=== PATIENT | female | born 1950 | race Caucasian/White ===

== ENCOUNTER 2016-07-08 09:51 | Day surgery (SDC) | payer MEDICARE ==
[2016-07-08] VITALS (8 sets, daily range): BP systolic 103–156; BP diastolic 60–80; PULSE 64–79; RESP 14–17; O2SAT 91–98
[~2016-07-08] VITALS: Ht 162.6 cm; Wt 81.6 kg
[~2016-07-08 09:51] MED LIST: ATEN25TA PO; FLUT9.9S NS; Lactated Ringer's 1,000 ML IV SCH; PRAV20TA2 PO
[2016-07-08] MEDS ORDERED: Ondansetron 2 mg/mL 2 mL Inj ONE (09:52)
[2016-07-08] MEDS ORDERED: Dexamethasone 4 mg/mL Inj ONE (09:52)
[2016-07-08] MEDS ORDERED: Lidocaine PF 1% 30 mL Inj ONE (09:52)
[2016-07-08] MEDS ORDERED: Propofol 10,000 mCg/mL 20 mL Inj ONE (09:52)
[2016-07-08] MEDS ORDERED: fentaNYL-PF 50 mCg/mL 2 mL Inj ONE (09:52)
[2016-07-08] MEDS ORDERED: MetoCLOpramide 5 mg/mL 2 mL Inj ONE (09:52)
[2016-07-08] MEDS ORDERED: Lactated Ringer's 1,000 ML IV ONE (10:00)
[2016-07-08] MEDS ORDERED: Lactated Ringer's 1,000 ML IV SCH (10:51)
[2016-07-08] MEDS ORDERED: Lactated Ringer's 500 ML IV PRN (10:51)
--- NOTE | 2016-07-08 10:51 | PCM.HPANE ---
Patient Data Date of Service: Jul 08, 2016 Surgeon Admitting Provider: Attending Provider:Flynn Espinoza MD Primary Care Physician:Iván Hayward MD Other Provider:Lidia Araujo Anesthesia Reason for Visit Right Breast Nipple Discharge Ht/WT & BMI Height (Feet): 5 Height (Inches): 4.00 Weight (Kilograms): 81.640 Body Mass Index 30.00 Allergies Coded Allergies: No Known Allergies (Verified Allergy, 05/11/13) Past Anesthesia History Anesthesia History: Denies:: Abnormal Airway, Anesthesia Reactions, Difficult Intubation, Fam Anesthesia Reaction, Fam Malignant Hypertherm, Malignant Hyperthermia Diabetes History Hx Diabetes?: No MRSA MRSA: No Medications Blood Thinner: Aspirin Hypertension Medication: Yes Home Meds Incl Beta Alla: Yes Date Beta Alla Taken: Jul 08, 2016 Time Beta Alla Taken: 0700 Reported Medications Pravastatin 20 Mg [id number] Mg PO DAILY Ref 0 07/05/16 Fluticasone Propionate (Flonase Allergy Relief)50 Mcg/Actuation Jenkinjones.susp9.9 Ml NS DIRECTED PRN For Congestion 07/05/16 Atenolol 25 Mg [id number] Mg PO DAILY #30 TABLET Ref 0 07/05/16 Discontinued Reported Medications [Pravastatin] No Conflict Check20 Mg PO DAILY 05/09/13 [Atenolol] No Conflict Check25 Mg PO DAILY 05/09/13 History History of ENT Problems?: No HEENT History: Denies:: Abnormal Airway Difficult Intubation Cardiovascular History: Positive for:: Hypertension Hx of Respiratory Problem?: Yes Respiratory History: Positive for:: Asthma (MILD) Hx Neurologic Problems?: No Neurological History: Positive for:: Headaches Denies:: CVA Hx of GI Problems?: No Hx of Problems?: No Skin History: Denies:: History Skin Disorders? Pressure Ulcers Hx Musculoskeletal Problems?: No Musculoskeletal History: Positive for:: Musculoskeletal Trauma (FOOT) Osteoarthritis Hx Surgeries?: Yes (T&A, BTL, R BREAST) Hx Any Other Health Problems?: No Other History: Positive for:: Cancer (R BREAST) Hx Diabetes: No Hx Alcohol Use: Yes (WINE / DAY) Stop/Bang S-Snoring: Do You Snore Loudly: No T-Tired: feel tired, fatigued: No O-Obsered: Observed not breath: No P-Blood Pressure: treated: Yes B- Body Mass Index > 35 kg/m2: No A- Age over 50: Yes N- Neck Large Circumference: No G- Gender Male: No NIRANJAN Total Score: 2 NIRANJAN Risk Assessment: Low Risk, <3 Yes Risk Assessment Category Category 1A: Patient has history of documented sleep apnea, and HAS NOT received any narcotic, sedative or anesthesia administration during this stay. Category 1B: Patient has history of documented sleep apnea, and HAS received any narcotic , sedative or anesthesia administration during this stay Category 2: Patient has SUSPECTED Obstructive Sleep Apnea, and HAS received any narcotic , sedative or anesthesia administration during this stay. Category 3: Patient has SUSPECTED Obstructive Sleep Apnea and HAS NOT received narcotic, sedative or anesthesia administration during this stay. Category 4: Outpatient in Procedural Areas with known sleep apnea or who screen positive for High Risk via the STOP/BANG questionnaire. Exam Exam Vital Signs Vital Signs Date Time Temp Pulse Resp B/P Pulse Ox O2 Delivery O2 Flow Rate FiO2 07/08/16 10:20 36.6 76 14 156/80 98 Room Air General Appearance: Alert, Oriented X3, Cooperative HEENT/AIRWAY: MP 2, Neck Movement (Full ), Mouth Opening (Wide) Lungs: Clear to Auscultation, Normal Air Movement Heart: Regular Rate/Rhythm, Normal S1, Normal S2 Meds/Labs/Diagnostics Admission Meds Current Medications Lactated Ringer's (Lr) 1,000 ml @ ud STK-MED ONCE IV Last administered on 07/08t 10:00; Start 07/08/16 at 10:00; Stop 07/08/16 at 10:01; Status DC Plan Impression Patient chart reviewed, patient interviewed and anesthestic plan with risks, benefits, and alternatives discussed, and informed consent obtained. NPO Status: Confirmed before mn ASA Physical Status: ASA2 Mod Systemic Disease Anesthetic Plan: GA Bene/Risks/Altern/Consents: Yes HP Complete Prior to Induction: Yes Servando Burton MD Jul 08, 2016 10:51
[2016-07-08] MEDS ORDERED: Dexamethasone 4 mg/mL Inj IVPUSH PRN (10:55)
[2016-07-08] MEDS ORDERED: fentaNYL-PF 50 mCg/mL 2 mL Inj IVPUSH PRN (10:55)
[2016-07-08] MEDS ORDERED: Atropine 0.4 mg/mL Inj IVPUSH PRN (10:55)
[2016-07-08] MEDS ORDERED: Albuterol 2.5 mg/3 mL Inhalation Solution NEB PRN (10:55)
[2016-07-08] MEDS ORDERED: Labetalol 5 mg/mL 4 mL Inj IV PRN (10:55)
[2016-07-08] MEDS ORDERED: Ondansetron 2 mg/mL 2 mL Inj IVPUSH PRN (10:55)
[2016-07-08] MEDS ORDERED: Phenylephrine 10,000 mCg/mL Inj IVPUSH PRN (10:55)
[2016-07-08] MEDS ORDERED: HYDROmorphone 1 mg/mL Inj IVPUSH PRN (10:55)
[2016-07-08] MEDS ORDERED: EPHEDrine Sulfate 50 mg/mL Inj IVPUSH PRN (10:55)
[2016-07-08] MEDS ORDERED: hydrALAZINE 20 mg/mL Inj IVPUSH PRN (10:55)
[2016-07-08] MEDS ORDERED: MetoCLOpramide 5 mg/mL 2 mL Inj IVPUSH PRN (10:55)
[2016-07-08] MEDS ORDERED: Bupivacaine-MPF 0.5% 30 mL Inj INFILTRATE ONE (11:35)
--- NOTE | 2016-07-08 12:06 | PCM.ANEP1 ---
Post Anesthesia Phase 1 PACU Phase 1 Assessment Date of Service: Jul 08, 2016 Vital Signs PACU HR 64, O2 97% 10 L, RR 10, T 36.2, BP 103/67 Vital Signs Date Time Temp Pulse Resp B/P Pulse Ox O2 Delivery O2 Flow Rate FiO2 07/08/16 10:20 36.6 76 14 156/80 98 Room Air Anesthetic Administered: GA Level of Alertness: Sleepy, easy to arouse BERMAN's with Equal Strength: Yes Pain: No Nausea or Vomiting: No Oxygen Delivery: Simple Mask Lungs: Normal Air Movement Servando Burton MD Jul 08, 2016 12:06
[2016-07-08] MEDS ORDERED: HYDROcodone-APAP 5-325 mg Tablet PO PRN (12:10)
--- NOTE | 2016-07-08 12:10 | PCM.ANEP2 ---
Post Anesthesia Evaluation ASA/CMS Post Anesthesia Date of Service: Jul 08, 2016 VS in Patient's Normal Range?: Yes Resp Stable; Airway Patent?: Yes CV Function & Hydration Stable: Yes Mental Status Recovered?: Yes Pain control Satisfactory?: Yes N/V Control Satisfactory?: Yes Servando Burton MD Jul 08, 2016 12:10
--- NOTE | 2016-07-08 13:37 | OP ---
[address] [address] OPERATIVE REPORT PATIENT: ARTI HORAN : 1950 MR#: [id number] ADMIT: 07/08/2016 JOB ID: [id number] DATE OF SURGERY: 07/08/2016 ANESTHESIA: General. PREOPERATIVE DIAGNOSIS(ES): Right pathologic nipple discharge. POSTOPERATIVE DIAGNOSIS(ES): Right pathologic nipple discharge. OPERATIVE PROCEDURE: Right breast duct excisional biopsy. SURGEON: Flynn Espinoza MD. TRAM DRIVER: Aissatou Eastman PA-C (the senior office support assistant sosa was required for the safe and timely completion of the case) and ANGEL Gregg. COMPLICATIONS: None. ESTIMATED BLOOD LOSS: Minimal. CONDITION: Satisfactory. SPECIMEN: Right breast duct excision. FINDINGS: I was able to identify a single duct that was expressing clear fluid. Ductal probe inserted and the duct excised through a circumareolar incision. INDICATIONS/SIGNIFICANT HISTORY: The patient is a 66-year-old female, who over the past couple of months has been noting intermittent clear discharge spontaneously draining from a single duct of the right nipple. She underwent mammogram and ultrasound there were unrevealing. MRI showed some ductal enhancement. She was referred to me and after discussion, elected to undergo excisional biopsy of the involved duct. OPERATIVE TECHNIQUE: The patient was taken into the operating room and placed in supine position. General anesthesia was administered. The right breast was prepped and draped in a standard surgical fashion. A procedural pause was performed. I manipulated the right nipple and was able to identify a duct around the 9 o'clock position that was expressing clear fluid. A small lacrimal probe was inserted into this duct. A right lateral superior circumareolar incision was then made and dissection carried down through the skin and subcutaneous tissue. I was able to then bluntly dissect around the duct and lacrimal probe. Using electrocautery, this was then excised all the way up to the undersurface of the nipple-areola complex. The specimen was marked with a stitch at the superficial aspect. This was handed off. The surgical bed was inspected and found to be hemostatic. The skin was closed using 3-0 Vicryl deep dermis, followed by a running 4-0 Monocryl. Dermabond was applied. Local anesthetic was injected. The entire procedure was well tolerated without complication.
--- NOTE | 2016-07-12 12:04 | PATH ---
SURGICAL PATHOLOGY Attending Physician:Flynn Espinoza MD CASE STATUS: Signed Out PATIENT NAME: ARTI HORAN PID: [id number] : 1950 DATE COLLECTED:07/08/2016 21:02 SPECIMEN: BREAST, NIPPLE BIOPSY CLINICAL HISTORY: 1). RIGHT BREAST DUCT EXCISION, SUTURE CRISTÓBAL SUPERFICIAL FINAL DIAGNOSIS: 1.RIGHT BREAST DUCT EXCISION SPECIMEN: INTRADUCTAL PAPILLOMA, NEGATIVE FOR ATYPIA, MEASURING UP TO 1.0 CM IN MAXIMUM DIMENSION ON THE SLIDE. EXCISIONAL MARGINS NEGATIVE FOR NEOPLASM. ICD10 CODE D24.1 GROSS DESCRIPTION: The specimen is received in formalin, labeled with the patient's name, sublabeled as right breast duct excision and consists of a piece of breast tissue (3.6 x 1.9 x 1.1 cm). The specimen contains a black suture indicating the superficial margin. The specimen cannot be further oriented. No localization wire is present. The breast tissue is fatty with no nodules, masses or lesions identified. Ink code: purple-superficial; blue-resection margin. Section code: (A-D) breast tissue, longitudinally sliced, one slice in each cassette. Specimen entirely submitted. Note: Approximately the fixation time formalin-29 hours and 30 minutes calculated using a collection date of July 08, 2016 with no collection time given. 07/09/16 MICRO DESCRIPTION: See diagnosis. ICD-9 CODES: CPT CODES: 16680 Electronically Signed Out Mac Nuñez MD [facility] Pathology [facility] [address], [place] [address] Technical component performed at [facility], [address] [place] [address] [address], [place], [address]
== END 2016-07-08 23:59 | disposition home or self-care (01) ==
LOC: SAS 09:51
PROVIDERS: ATTEND General Practice
DX: D24.1 Benign neoplasm of right breast (principal); I10 Essential (primary) hypertension; Z79.82 Long term (current) use of aspirin
CPT/HCPCS: 19120; J1100; J2250; J2405; J2765; J7120

== ENCOUNTER 2016-08-24 10:35 | Day surgery (SDC) | payer MEDICARE ==
[~2016-08-24] VITALS: Ht 162.6 cm; Wt 81.7 kg
[~2016-08-24 10:35] MED LIST changes: -Lactated Ringer's 1,000 ML IV SCH; +Sodium Chloride LOK Flush 10 mL Syringe IV PRN; +fentaNYL-PF 50 mCg/mL 2 mL Inj IVPUSH PRN
[2016-08-24 11:17] VITALS: BP 160/84; PULSE 82; RESP 14; O2SAT 98
[2016-08-24] MEDS: 0.9% Sodium Chloride 1,000 ML IV PRN ×2 (12:06→12:22)
[2016-08-24 12:36] VITALS: BP 150/84; PULSE 76; RESP 16; O2SAT 97
--- NOTE | 2016-08-24 12:37 | PCM.ENDCOL ---
Colonoscopy Date of Service: Aug 24, 2016 Physician Arthur Deluca MD Pre Procedure Diagnosis: Screening Post Procedure Dx & Findings: Polyp hemorrhoids diverticuli Procedure Colonoscopy Prep adequate Withdrawal 15 minutes PROCEDURE IN DETAIL: After unremarkable rectal examination the Olympus video colonoscope was inserted patient's anal canal was advanced to cecum. Landmarks are identified including the ileocecal valve and appendiceal orifice. Scope was withdrawn systematically. In the cecum, there was a 3 mm polyp which was removed completely using cold snare. In the transverse colon, 1 mm polyp which was removed completely using cold forceps. In the descending colon there was a 1 mm polyp which was removed completely using cold forceps. In the sigmoid colon multiple medium sized diverticuli noted. In the rectum retroflexion was done which showed hemorrhoids. Anal canal was inspected carefully on the way out and hemorrhoids noted. The mucosa of the cecum, ascending, transverse, descending, sigmoid, rectal mucosa lined with whitish, pink, smooth, glistening, normal-appearing mucosa, normal fine branching, underlying vascularity, normal haustra. The patient tolerated procedure and was transported to observation area. Impression Polyp 3 status post complete removal Hemorrhoids Diverticuli Recommendation Repeat colonoscopy 3 years Diverticular diet Presedation Assessment Risks and Benefits Informed consent was obtained from the patient after all risks and benefits including but not limited to drug reaction, infection, pain, bleeding, perforation, as well as alternatives were discussed. Patient monitoring Continuous pulse oximetry, cardiac monitoring, blood pressure monitoring, IV access, and oxygen at 2L per nasal cannula. Periprocedural Fentanyl: Fentanyl 100mcg Incrementally Midazolam: Midazolam 4mg Incrementally Complications There were no periprocedural complications identified. Post Procedure Plan Post Procedure Recommendations 1. Restrict activities today. 2. Resume normal activities in the morning. 3. Resume medications. 4. Patient informed of normal post procedure side effects as bloating, drowsiness, blood streaking in the stool. 5. average risk CRCS. If colon polyps come back as: -Hyperplastic- can repeat colonoscopy in 10 years -Tubular adenoma- repeat colonoscopy in 5 years -Tubulovillous/villous adenoma- repeat colonoscopy in 3 years -If any dysplasia- return to clinic as soon as possible 6. Please don't hesitate to call me with any questions. Arthur Deluca MD Aug 24, 2016 12:37
[2016-08-24 12:47] VITALS: BP 121/71; PULSE 79; RESP 16; O2SAT 99
[2016-08-24 12:50] VITALS: BP 151/84; PULSE 78; RESP 16; O2SAT 97
--- NOTE | 2016-08-27 15:21 | PATH ---
SURGICAL PATHOLOGY Attending Physician:Arthur Deluca M.D. CASE STATUS: Signed Out PATIENT NAME: ARTI HORAN PID: [id number] : 1950 DATE COLLECTED:08/24/2016 22:34 SPECIMEN: 1: Colon, Biopsy 2: Colon, Biopsy 3: Colon, Biopsy CLINICAL HISTORY: 1). CECAL POLYP X1 2). TRANSVERSE COLON POLYP X1 3). DESCENDING COLON POLYP X1 FINAL DIAGNOSIS: 1.CECUM, POLYP, BIOPSY: COLONIC MUCOSA WITH A BENIGN LYMPHOID AGGREGATE. Negative for dysplasia and malignancy. 2.TRANSVERSE COLON, POLYP, BIOPSY: COLONIC MUCOSA WITH MINIMAL NEUTROPHILIC ACTIVITY AND STROMAL CHANGES CONSISTENT WITH A HEALED/HEALING EROSION. Negative for granulomas, dysplasia and malignancy. 3.DESCENDING COLON, POLYP, BIOPSY: COLONIC MUCOSA WITH A BENIGN LYMPHOID AGGREGATE. Negative for dysplasia and malignancy. ICD10 CODE K63.5 GROSS DESCRIPTION: The specimen is received in three formalin filled containers labeled with the patient's name. 1). The specimen is sublabeled "cecal polyp" and consists of a 0.4 x 0.4 x 0.3 CM portion of tissue which is entirely submitted in cassette 1A. 2). The specimen is sublabeled "transverse colon" and consists of a 0.2 x 0.2 x 0.2 CM portion of tissue which is entirely submitted in cassette 2A. 3). The specimen is sublabeled "descending colon polyp" and consists of a 0.2 x 0.2 x 0.2 CM portion of tissue which is entirely submitted in cassette 3A. 08/25/2016 DAC MICRO DESCRIPTION: See diagnosis. ICD-9 CODES: CPT CODES: 1: 66948 2: 94791 3: 76290 Electronically Signed Out Marlene Navarrete MD [facility] Pathology [facility] [address], [place] [address] Technical component performed at [facility], [address] [place] [address] Ave[address], [place], [address]
== END 2016-08-24 23:59 | disposition home or self-care (01) ==
LOC: END 10:35
PROVIDERS: ATTEND Internal Medicine
DX: Z12.11 Encounter for screening for malignant neoplasm of colon (principal); Z86.010 Personal history of colon polyps; K63.5 Polyp of colon; K57.30 Diverticulosis of large intestine without perforation or abscess without bleeding; K64.9 Unspecified hemorrhoids
CPT/HCPCS: 45380; 45385; 99153; G0500; J2250; J3010; J7030